=== PATIENT | female | born 1975 | race African-American/Black ===

== ENCOUNTER 2023-08-15 11:18 | Outpatient (CLI) | payer OTHER, SELFPAY ==
--- NOTE | ~2023-08-15 | MR_ITS ---
EXAMINATION: MR wrist LT wo con DATE: 08/15/2023 12:04 INDICATION: Left wrist pain TECHNIQUE: Magnetic resonance imaging (MRI) of the left wrist was performed without intravenous contr ast. Sequences performed include axial PD-weighted FSE and PD-weighted FS FSE, coronal PD-weighted FS FSE and T1-weighted SE, and sagittal PD-weighted FS FSE and PD-weighted FSE. 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 Bon e alignment is normal. No fracture or pathologic marrow replacing process. There is mild osteoarthrit is with tiny marginal osteophytes at the triscaphe and first carpal metacarpal joints. Likely degener ative cystic changes at the lunate. There is a cluster of small ganglion cysts at the volar/radial as pect of the wrist extending along the volar radioscaphoid capitate and radial lunate ligaments. Intrinsic ligaments: Thickening and mild increased signal of the dorsal component of the scapholunate ligament consistent with likely partial tear. The volar and central components of the ligament appear normal. The lunotri quetral ligament is absent given the presence of the previous noted lunotriquetral coalition. Triangular fibrocartilage complex (TFCC): The triangular fibrocartilage including its foveal and styloid attachments as well as the dorsal and volar radioulnar ligaments are normal. The ulnar collateral ligament, ulnotriquetral ligament and men iscal homologue are normal. The extensor carpi ulnaris tendon sheath is normal. Extensor wrist: Extensor tendons of the wrist are normal. No tenosynovitis. Flexor wrist: There is mild increased fluid signal surrounding the otherwise normal-appearing flexor tendons at the level of the carpal tunnel consistent with mild tenosynovitis. Guyon's canal: Guyon's canal including the ulnar nerve and artery are normal. IMPRESSION: 1. Developmental variant lunotriquetral coalition. 2. Partial tear of the dorsal component of the scapholunate ligament. 3. Mild tenosynovitis surrounding the flexor tendons at the carpal tunnel. 4. 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 Reviewed, dictated and finalized at location A. [facility]
== END 2023-08-15 11:19 | disposition home or self-care (01) ==
PROVIDERS: PCP Family Medicine; Visit Provider Orthopaedic Surgery
DX: M19.032 Primary osteoarthritis, left wrist (principal); M65.842 Other synovitis and tenosynovitis, left hand; S63.512A Sprain of carpal joint of left wrist, initial encounter; X58.XXXA Exposure to other specified factors, initial encounter
CPT/HCPCS: 73221

== ENCOUNTER 2023-09-08 11:40 | Outpatient (CLI) | payer OTHER, SELFPAY ==
--- NOTE | ~2023-09-08 | XR_ITS ---
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 No fracture or dislocation, periosteal reaction or bone destruction, erosive change or chondrocalcino sis. Joint spaces appear well preserved. IMPRESSION: Lunotriquetral coalition, developmental anomaly Reviewed, dictated and finalized at location B.
== END 2023-09-08 11:41 | disposition home or self-care (01) ==
LOC: ANHIMG 11:42
PROVIDERS: PCP Family Medicine; Visit Provider Plastic Surgery
DX: S63.502A Unspecified sprain of left wrist, initial encounter (principal); X58.XXXA Exposure to other specified factors, initial encounter
CPT/HCPCS: 73110

== ENCOUNTER 2023-10-30 07:56 | Outpatient (RCR) | payer OTHER, SELFPAY ==
--- NOTE | 2023-10-30 08:42 | OTOPEVAL1 ---
Assessment and note entered by Octavio Hernandez, VIRIDIANA/Julio, CHT Evaluation Information Assessment Status Evaluation Diagnosis Left wrist sprain Subjective Information Patient fell in Jul, continues to have pain. Reporting constant wrist pain. When she lays down at the end of the day the pain shoots all the way up to the shoulder, reporting it feels like pins and needles . She likes heat vs. cold. States that cold makes it ache worse. She has been wearing a wrist brace for about 2-3 months. Functionally she reports she is unable to use the left hand for ADLs and work tasks. She reports at home her is assisting her with bathing and dressing . L wrist MRI 08/15/23 - 1. Developmental variant lunotriquetral coalition. 2. Partial tear of the dorsal component of the scapholunate ligament. 3. Mild tenosynovitis surrounding the flexor tendons at the carpal tunnel. 4. 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 Reported Pain Level Pain Score 5: Self Report Additional Pain Score Comments Patient reporting 10/10 pain when she lays down at night, the pain becomes more stabbing, shooting. Assessment OT Clinical Summary Patient referred to OT with dx of left wrist sprain sustained after a fall in Jul 2023. 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 Skilled OT indicated to maximize functional use of the left UE through therapeutic exercise, modalities, manual therapy, and HEP instruction and progression. Plan of Care Interventions Therapeutic Exercise,Manual Therapy,Therapeutic Activities,Hot Pack/Cold Pack OT Services Indicated Yes Treatment Frequency and 2x/week for 9 visits Duration These treatments will address the objective and functional deficits as defined above. The patient will be advanced safely and appropriately in order for the patient to progress towards his/her prior level of function. Additional exercises will be introduced and as well as a comprehensive home exercise program upon discharge, if needed, ?to ensure carryover of functional gains achieved in the clinic. This treatment plan has been reviewed and agreement upon by the patient.
--- NOTE | 2023-10-30 08:43 | OPREHPOC ---
Outpatient Therapy Plan of Care This is a Multidisciplinary Plan of Care that may contain components documented by all disciplines (PT, OT, and ST.) OT Problem 1 OT Problem #1 Knowledge Deficit OT Goal 1 Goal 1. Patient to be independent with instructed materials. Target Visit 9 OT Problem 2 OT Problem #2 Pain OT Goal 1 Goal 1. Patient to report reduced pain in the left wrist, reporting no instances of 10/10 pain. 2. Patient to report reduced pain in the left wrist, reporting being able to use the left hand to help dress and bathe herself. Target Visit 9 OT Problem 3 OT Problem #3 Impaired Range of Motion OT Goal 1 Goal 1. Patient to increase left wrist active ROM: - flexion to 45 deg. - extension to 50 deg. - UD to 15 deg. Target Visit 9 OT Problem 4 OT Problem #4 Impaired Strength OT Goal 1 Goal 1. Patient to be able to progress to gentle strengthening of the left wrist, in all planes, with a 1 lb. free weight x10 reps. 2. Patient to be able to tolerate gentle distribution lineman/ pinch strengthening with the left hand with yellow theraputty x5 minutes. Target Visit 9
--- NOTE | 2023-11-05 10:16 | PCOTNOTE ---
The patient treatment was not able to be completed due to insurance issue.
--- NOTE | 2024-01-20 09:53 | OTOPDC ---
Assessment and note entered by Octavio Hernandez, VIRIDIANA/Julio, CHT OT Discharge Notification 01/20/24 OT Clinical Summary Patient was initially evaluated by OT on 10/30/23. Due to issues with insurance authorization she was not scheduled for a few weeks. When she was scheduled for appointments she no showed x2. We are currently unable to get a hold of her at this time. Discharging OT at this time due to poor attendance.
== END 2024-01-20 15:20 | disposition home or self-care (01) ==
LOC: ANHGOSHOT 07:56
PROVIDERS: PCP Family Medicine; Visit Provider Plastic Surgery
DX: S63.502D Unspecified sprain of left wrist, subsequent encounter (principal)
CPT/HCPCS: 97110; 97165